=== PATIENT | male | born 1955 | race Caucasian/White ===

== ENCOUNTER 2023-04-16 11:22 | Outpatient (CLI) | payer MEDICARE ==
[2023-04-16] MEDS ORDERED: Iopamidol 370 76% 100 ML VIAL ONE (12:15)
== END 2023-04-16 11:23 | disposition home or self-care (01) ==
LOC: CSHCT 11:22
PROVIDERS: ATTEND Internal Medicine Cardiovascular Disease
DX: I73.9 Peripheral vascular disease, unspecified (principal); I65.23 Occlusion and stenosis of bilateral carotid arteries
CPT/HCPCS: 70498; 82565; Q9967